=== PATIENT | female | born 1980 | race Two or more races ===

== ENCOUNTER 2016-05-18 11:30 | Emergency (ER) | payer BC, MEDICAID ==
[~2016-05-18] VITALS: Ht 154.9 cm; Wt 72.6 kg
[~2016-05-18 11:30] MED LIST: LISD60CA PO; METH20TA9 PO
--- NOTE | 2016-05-18 11:42 | NUR ---
pt ambulatory to er bed 21. c/o pelvic pain and dysuria x 1 week. hx of uti. gowned. vss. 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 awaiting md esquivel.
--- NOTE | 2016-05-18 11:56 | NUR ---
dr forrester at bedside for eval.
[2016-05-18 12:11] LABS: APPEARANCE,URINE Clear (CLEAR); BILIRUBIN,URINE Negative (NEGATIVE); BLOOD, URINE Moderate Ery/uL (NEGATIVE); COLOR,URINE Yellow (YELLOW); KETONES,URINE Negative (NEGATIVE); LEUKOCYTE ESTERASE ,URINE Trace (NEGATIVE); NITRITE, URINE Negative (NEGATIVE); PROTEIN,URINE Negative (NEGATIVE); UGLUCOSE Negative (NEGATIVE); UROBILINOGEN,URINE 0.2 EU/dL (0.2)
[2016-05-18 12:12] LABS: PREGNANCY TEST URINE QUAL NEGATIVE (NEGATIVE)
[2016-05-18 12:18] LABS: ADD URINE CULTURE NO; BACTERIA,URINE Few /HPF (None Seen); SQUAMOUS EPITHELIAL CELL,UR Few /HPF (None Seen); WBC,URINE 30-50 /HPF (0-3)
[2016-05-18] MEDS ORDERED: PHENAZOPYRIDINE HCL 200 MG TABLET ONE (12:35)
[2016-05-18] MEDS ORDERED: CEPHALEXIN MONOHYDRATE 250 MG CAPSULE PO ONE (12:36)
[2016-05-18] MEDS: PHENAZOPYRIDINE HCL 200 MG TABLET PO ONE (12:41)
[2016-05-18] MEDS: CEPHALEXIN MONOHYDRATE 500 MG CAPSULE PO ONE (12:41)
--- NOTE | 2016-05-18 13:12 | NUR ---
Patient discharged to home in stable condition. Written and verbal after care instructions given. Patient verbalizes understanding of instruction.
[2016-05-18 13:13] VITALS: BP 115/68
== END 2016-05-18 13:13 | disposition home or self-care (01) ==
LOC: ER 11:32
DX: N39.0 Urinary tract infection, site not specified (principal); J45.909 Unspecified asthma, uncomplicated; N83.209 Unspecified ovarian cyst, unspecified side; Z90.89 Acquired absence of other organs
CPT/HCPCS: 81000-TC; 84703-TC; A4606; Z7610